=== PATIENT | male | born 1970 | race Two or more races ===

== ENCOUNTER 2017-04-24 12:00 | Emergency (ER) | payer MEDICAID ==
[~2017-04-24] VITALS: Ht 177.8 cm; Wt 81.6 kg
[~2017-04-24 12:00] MED LIST: HYDR-552 PO
[2017-04-24 12:15] VITALS: BP 128/90
== END 2017-04-24 12:47 | disposition home or self-care (01) ==
LOC: ER 12:02
DX: S09.91XA Unspecified injury of ear, initial encounter (principal); H66.92 Otitis media, unspecified, left ear; F17.200 Nicotine dependence, unspecified, uncomplicated; Z87.442 Personal history of urinary calculi; X58.XXXA Exposure to other specified factors, initial encounter; Y93.89 Activity, other specified; Y92.89 Other specified places as the place of occurrence of the external cause; Y99.8 Other external cause status
CPT/HCPCS: A4606; Z7610

== ENCOUNTER 2019-12-14 15:10 | Emergency (ER) | payer MEDICAID ==
[~2019-12-14] VITALS: Ht 177.8 cm; Wt 87.1 kg
[~2019-12-14 15:10] MED LIST changes: +HYDR-4384 PO; -HYDR-552 PO
[2019-12-14] MEDS ORDERED: LABETALOL 20 MG/4 ML VIAL IV ONE (16:00)
--- NOTE | 2019-12-14 16:06 | NUR ---
BIB FROM HOME TO ER BED 6. AAOX4. NOT IN RESP DISTRESS. AMBULATORY. CANE IN FOR R SIDE HEADACHE X 1 WEEK WORST IN THE PAST 3 DAY. PER PT, PAIN IS 5/10. THROBBING AND COMES IN WAVES. PT REPORTS THAT HE WOULD BLACK OUT EVERY NOW AND THEN WHEN THE PAIN COMES BUT NOT PASSING OUT. NO NEURO DEFICIT NOTED. MD WAS AT THE BEDSIDE FOR EVAL. ORDERS RECEIVED NOTED AND CARRIED OUT. IV LINE ESTABLISHED ON L HAND 18G, BLOOD DRAWN AND GIVEN TO LOW ALTITUDE [employer] AT BEDSIDE.
--- NOTE | 2019-12-14 16:09 | NUR ---
MD MADE AWARE. THAT BP IS 157/113 PRIOR TO GIVNING TRANDATE. MD ORDERED TO HOLD TRANDATE AND GIVE IT IF BP SBP >180. ORDER NOTED AND CARRIED OUT
[2019-12-14 16:26] LABS: BASOPHILS # (AUTO) 0.1 /CMM (0.0-0.2); BASOPHILS % (AUTO) 1.5 % (0.0-2.0); EOSINOPHILS % (AUTO) 7.8 % (0.0-6.0); HEMATOCRIT 44 % (39-51); HEMOGLOBIN 14.9 g/dL (13.5-17.5); LYMPHOCYTES % (AUTO) 32.5 % (20.0-44.0); MEAN CORPUSCULAR HGB CONC 34 g/dl (31.0-36.0); MEAN CORPUSCULAR VOLUME 90 fL (80-96); MONOCYTES # (AUTO) 0.9 /CMM (0.1-1.30); MONOCYTES % (AUTO) 9.9 % (2.0-12.0); NEUTROPHILS # (AUTO) 4.5 /CMM (1.8-8.9); NEUTROPHILS % (AUTO) 48.3 % (43.0-81.0); PLATELET COUNT (AUTO) 231 /CMM (150-450); WHITE BLOOD COUNT (AUTO) 9.3 K/uL (4.3-11.0)
[2019-12-14 16:37] LABS: CALCIUM, SERUM 9.1 mg/dL (8.5-10.1); CARBON DIOXIDE 26 mmol/L (21-32); CHLORIDE 102 mmol/L (98-107); GLUCOSE 106 mg/dL (74-106); POTASSIUM 3.6 mmol/L (3.5-5.1); SODIUM SERUM 138 mmol/L (136-145); UREA NITROGEN, BLOOD 13 mg/dL (7-18)
[2019-12-14 16:43] LABS: CHOLESTEROL 259 mg/dL (<200); HDL CHOLESTEROL 44 mg/dL (40-60); LDL 162 mg/dL (0-99); TRIGLYCERIDES 454 mg/dL (30-150)
[2019-12-14] MEDS ORDERED: CT SWABBABLE VALVE TRANS SET 1 EA INFUS.SET MC ONE (16:51)
[2019-12-14] MEDS ORDERED: IV NS 0.9% 250 ML IV ONE (16:51)
[2019-12-14] MEDS ORDERED: IOHEXOL-350 100 ML VIAL IV ONE (16:51)
--- NOTE | 2019-12-14 16:52 | NUR ---
PT BACK FROM RADIOLOGY
[2019-12-14] MEDS ORDERED: HYDROCODONE/APAP 5/325MG TABLET ONE (17:40)
[2019-12-14] MEDS ORDERED: HYDROCODONE/APAP 5/325MG TABLET PO ONE (18:00)
[2019-12-14] MEDS ORDERED: LISINOPRIL (20MG) 20 MG TABLET PO SCH (19:30)
--- NOTE | 2019-12-14 19:43 | NUR ---
CANCELED PRINIVIL ORDER D/T BP IS 139/92. PT INSTRUCTED TO START MEDICATION TOMORROW
--- NOTE | 2019-12-14 19:49 | NUR ---
Patient discharged to home in stable condition. Written and verbal after care instructions given. Patient verbalizes understanding of instruction.IV removed. Catheter intact and site benign. Pressure and 4x4 applied to site. No bleeding noted. Pt ambulatory with a steady gait
[2019-12-14 19:50] VITALS: BP 139/92
== END 2019-12-14 19:50 | disposition home or self-care (01) ==
LOC: ER 15:13
DX: R51 Headache (principal); I10 Essential (primary) hypertension; R42 Dizziness and giddiness; R55 Syncope and collapse; Z87.442 Personal history of urinary calculi; Z79.899 Other long term (current) drug therapy
CPT/HCPCS: 36415; 70450; 70496; 70498; 71045; 80048; 80061; 84484; 85025; 85730; 93005; 99285; J3490; J7050; Q9967

== ENCOUNTER 2020-12-03 08:49 | Emergency (ER) | payer MEDICAID ==
[~2020-12-03] VITALS: Ht 177.8 cm; Wt 83.9 kg
--- NOTE | 2020-12-03 09:00 | NUR ---
PATIENT PRESENTS IN ER FOR C/O L SIDED CHEST PAIN THAT STARTED LAST NIGHT. PATIENT ALERT AND ORIENTED X4. NO RESPIRATORY DISTRESS NOTED. RESPIRATIONS EVEN AND UNLABORED. VSS STABLE. WILL CONTINUE TO MONITOR. AWAITING MD FLOYD
[2020-12-03] MEDS ORDERED: ASPIRIN 325 MG TABLET ONE (09:16)
[2020-12-03] MEDS ORDERED: NITROGLYCERIN 0.4 MG/TAB BOTTLE ONE (09:16)
[2020-12-03 09:30] LABS: BASOPHILS # (AUTO) 0.1 K/uL (0.0-0.2); BASOPHILS % (AUTO) 0.9 % (0.0-2.0); EOSINOPHILS % (AUTO) 6.9 % (0.0-6.0); HEMATOCRIT 45 % (39-51); LYMPHOCYTES # (AUTO) 2.5 K/uL (0.8-4.8); LYMPHOCYTES % (AUTO) 26.7 % (20.0-44.0); MEAN CORPUSCULAR HGB CONC 33 g/dl (31.0-36.0); MEAN CORPUSCULAR VOLUME 91 fL (80-96); MONOCYTES # (AUTO) 0.7 K/uL (0.1-1.30); MONOCYTES % (AUTO) 6.9 % (2.0-12.0); NEUTROPHILS # (AUTO) 5.6 K/uL (1.8-8.9); NEUTROPHILS % (AUTO) 58.6 % (43.0-81.0); PLATELET COUNT (AUTO) 259 K/uL (150-450); RED BLOOD CELL COUNT(AUTO) 4.97 MIL/uL (4.5-6.0); WHITE BLOOD COUNT (AUTO) 9.5 K/uL (4.3-11.0)
[2020-12-03] MEDS ORDERED: ASPIRIN 325 MG TABLET PO ONE (09:30)
[2020-12-03] MEDS ORDERED: NITROGLYCERIN 0.4 MG/TAB BOTTLE SL ONE (09:30)
--- NOTE | 2020-12-03 09:50 | NUR ---
0920 GIVEN 1ST DOSE OF NITRO SL. VS 158/114 P 73. 0925 2ND DOSE OF NITRO SL GIVEN VS 123/74 P 70. PATIENT STATED NO MORE CHEST PAIN AND FELT MUCH BETTER. DR MATIAS MADE AWARE.
[2020-12-03 10:02] LABS: CALCIUM, SERUM 8.8 mg/dL (8.5-10.1); CARBON DIOXIDE 26 mmol/L (21-32); CHLORIDE 102 mmol/L (98-107); CREATININE 1.1 mg/dL (0.6-1.3); GLUCOSE 128 mg/dL (74-106); POTASSIUM 3.7 mmol/L (3.5-5.1); SODIUM SERUM 140 mmol/L (136-145); UREA NITROGEN, BLOOD 16 mg/dL (7-18)
[2020-12-03] MEDS ORDERED: NITR0.4T48 SL (11:25)
--- NOTE | 2020-12-03 11:48 | NUR ---
Appointment with Dr. Masters (cops) on 12/07/20 @ 230pm [address] [place] [id number] .
--- NOTE | 2020-12-03 11:53 | NUR ---
lab at bedside
--- NOTE | 2020-12-03 12:27 | NUR ---
Patient discharged to home in stable condition. Written and verbal after care instructions given. Patient verbalizes understanding of instruction.
[2020-12-03 12:29] VITALS: BP 128/87
== END 2020-12-03 12:30 | disposition home or self-care (01) ==
LOC: ER 09:02
DX: R07.9 Chest pain, unspecified (principal); I10 Essential (primary) hypertension; E78.5 Hyperlipidemia, unspecified; Z87.442 Personal history of urinary calculi; Z20.822 Contact with and (suspected) exposure to COVID-19; R94.31 Abnormal electrocardiogram [ECG] [EKG]; F17.200 Nicotine dependence, unspecified, uncomplicated
CPT/HCPCS: 36415; 71045; 80048; 83880; 84484 ×2; 85025; 87426; 93005; 99285; 99406; C9803

== ENCOUNTER 2025-01-28 10:11 | Emergency (ER) | payer MEDICAID, OTHER ==
[~2025-01-28] VITALS: Ht 177.8 cm; Wt 89.8 kg
[~2025-01-28 10:11] MED LIST changes: +NITR0.4T48 SL
[2025-01-28 11:06] LABS: PLATELET COUNT (AUTO) 239 K/uL (150-450); RED BLOOD CELL COUNT(AUTO) 4.80 MIL/uL (4.5-6.0); RED CELL DISTRIBUTION WIDTH 13.2 % (11.5-15.0); WHITE BLOOD COUNT (AUTO) 8.0 K/uL (4.3-11.0)
[2025-01-28 11:15] LABS: CALCIUM, SERUM 8.8 mg/dL (8.5-10.1); CREATININE 0.8 mg/dL (0.6-1.3); SODIUM SERUM 138 mmol/L (136-145); UREA NITROGEN, BLOOD 15 mg/dL (7-18)
[2025-01-28 11:18] LABS: PHOSPHORUS 2.8 mg/dL (2.5-4.9)
[2025-01-28 11:21] LABS: ASPARTATE AMINOTRANSFERASE 26 U/L (15-37); TOTAL PROTEIN, SERUM 7.7 g/dL (6.4-8.2)
[2025-01-28] MEDS ORDERED: ACETAMINOPHEN ES 500 MG TABLET ONE (11:21)
[2025-01-28] MEDS ORDERED: dexaMETHasone SOD PHOSPHATE 1 ML ONE (11:21)
[2025-01-28] MEDS ORDERED: METOCLOPRAMIDE HCL 10 MG/2 ML VIAL ONE (11:21)
[2025-01-28] MEDS: IV NS 0.9% 1,000 ML BAG IV ONE (11:30)
[2025-01-28] MEDS: dexaMETHasone SOD PHOSPHATE 10 MG/ML VIAL IV ONE (11:32)
[2025-01-28] MEDS: METOCLOPRAMIDE HCL 10 MG/2 ML VIAL IV ONE (11:35)
[2025-01-28] MEDS: ACETAMINOPHEN ES 500 MG TABLET PO ONE (11:35)
[2025-01-28 12:13] LABS: APPEARANCE,URINE CLEAR (CLEAR); BLOOD, URINE Small Ery/uL (NEGATIVE); LEUKOCYTE ESTERASE ,URINE Negative (NEGATIVE); NITRITE, URINE NEGATIVE (NEGATIVE); UGLUCOSE Negative (NEGATIVE)
[2025-01-28 12:25] LABS: ADD URINE CULTURE NO; SQUAMOUS EPITHELIAL CELL,UR None Seen /HPF (None Seen)
[2025-01-28 12:26] LABS: CALCIUM OXALATE CRYSTALS,UR Rare /HPF (None Seen)
[2025-01-28 13:27] VITALS: BP 134/93; TEMP 98.4; O2SAT 99
== END 2025-01-28 13:27 | disposition home or self-care (01) ==
LOC: ER 10:18
DX: G44.209 Tension-type headache, unspecified, not intractable (principal); F43.9 Reaction to severe stress, unspecified; R55 Syncope and collapse; R53.83 Other fatigue; R53.1 Weakness; R11.0 Nausea; R20.0 Anesthesia of skin; I10 Essential (primary) hypertension; F17.200 Nicotine dependence, unspecified, uncomplicated; Z79.52 Long term (current) use of systemic steroids
CPT/HCPCS: 99285; 96374; 70450; 96375; 71045; 96361; 93005; 85025; 80048; 80076; 83735; 84100; 81001; 36415; 84443; 84484; J1100; J1200; J2765; J7030 ×2